=== PATIENT | male | born 1960 | race Caucasian/White ===

== ENCOUNTER 2018-07-22 06:20 | Day surgery (SDC) | payer MEDICARE ==
[2018-07-21 09:11] LABS: HEMATOCRIT 43.1 % (42.0-54.0); HEMOGLOBIN 14.5 g/dL (13.5-17.5); MCH 31.7 pg (26.0-34.0); MCHC 33.6 g/dL (31.0-37.0); MCV 94.1 fL (80.0-100.0); MEAN PLATELET VOLUME 10.1 fL (7.4-10.4); RBC 4.58 10x6/uL (4.20-6.10); RDW 13.6 % (11.5-14.5); WBC 6.8 10x3/uL (4.8-10.8)
[~2018-07-22] VITALS: Ht 175.3 cm; Wt 79.8 kg
[~2018-07-22 06:20] MED LIST: ACETAMINOPHEN; ACETAMINOPHEN325 MG; BAYER CHEWABLE81 MG PO; FEXOFENADINE H180 MG PO; PRAVACHOL20 MG PO; RANITIDINE HCL150 M1 PO; TOPAMAX200 MG PO; TRAZODONE HCL150 MG; ZOLOFT100 MG PO
[2018-07-22] MEDS ORDERED: TOPAMAX200 MG PO (07:04)
[2018-07-22 07:07] VITALS: BP 100/57; Ht 175.3 cm; Wt 79.8 kg
[2018-07-22] MEDS ORDERED: HYDROCODON-ACE1 EA10 PO (10:13)
--- NOTE | 2018-07-22 10:32 | NUR ---
FIRST PART CASE LATERAL TO TAKE BLOOD FROM LEFT POSTERIOR HIP. 2ND PART SUPINE, LEFT KNEE PREP TOES TO TOURNIQUET. HIP PREP WITH CHLORAPREP AND DRAPED WITH TOWELS BY DR STEWART, POSTERIOR HIP,
--- NOTE | 2018-07-22 11:32 | NUR ---
1029 PT HERE TO TRAIN PATIENT ON HOW TO PROPERLY USE CRUTCHES.
--- NOTE | 2018-07-22 12:08 | NUR ---
1040 PHYSICAL THERAPIST IS RECOMMENDING THAT PT USE A WALKER INSTEAD OF CRUTCHES. PT HAS RIGHT SIDED WEAKNESS FROM A PREVIOUS TIA. PT HAD SOME BALANCE ISSUES USING THE CRUTCHES AND ALMOST FELL PER PHYSICAL THERAPIST. 1045 [facility] NOTIFIED OF WALKER NEED AND ARRANGEMENTS ARE BEING MADE TO GET WALKER TO PT.
--- NOTE | 2018-07-22 12:11 | NUR ---
1150 IV DC'D. NO BLEEDING AT SITE. BANDAID APPLIED.
--- NOTE | 2018-07-22 13:38 | OP ---
PATIENT NAME: LORE BULLOCK MEDICAL RECORD: [id number] :58 LOCATION:[facility] ADMISSION DATE: SURGEON: ALESHA STEWART MD DATE OF OPERATION: 07/22/2018 PREOPERATIVE DIAGNOSIS: Medial femoral condylar fracture. POSTOPERATIVE DIAGNOSIS: Medial femoral condylar fracture. PROCEDURE: Arthroscopic assisted open reduction internal fixation of medial femoral condyle (BioPlasty). Bone marrow aspirate harvest with autograft stem cell transplant. SURGEON: Alesha Stewart MD ANESTHESIA: General. INTRAOPERATIVE COMPLICATIONS: None. SUMMARY OF PATHOLOGIC FINDINGS: The patient had no untoward events in the knee itself and after BioPlasty the second look arthroscopy, there was no evidence of any BioPlasty material in the femoral condyle. The BioPlasty was delivered fluoroscopically. OPERATIVE SUMMARY IN DETAIL: After obtaining the appropriate preoperative orthopedic surgery consent as well as anesthetic consultation, evaluation and clearance, the patient was brought to the operating room and placed on the operating table in supine position. After adequate general laryngeal mask airway was administered, the patient was placed in a right lateral decubitus position. All pressure points well padded. After the patient's posterior iliac crest was prepped and draped, the Arthrex BMAC system was put in place. The trocar cannula was then tapped gently into the posterior superior iliac crest and then 120 cc of bone marrow aspirate was taken using the 5 cc turn and withdrawal technique. Having completed this, the 4 tubes were handed off the field for the Terrance system to concentrate bone marrow aspirate cells. As that was happening, sterile dressings were applied. The patient was then returned to a supine position, tourniquet was placed on the proximal aspect of left lower extremity. Left lower extremity was then prepped and draped in a routine sterile fashion. The leg was elevated and exsanguinated and tourniquet was inflated to 350 mmHg. Arthroscopy was established. Diagnostic arthroscopy showed no meniscal tears, no chondral fissuring. MRI was then rereviewed to show the patient's large medial femoral condylar fracture. With fluoroscopic guidance, the trocar system for the bone marrow aspirate delivery system, Arthrex was then placed into the medial femoral condyle corresponding to the appropriate position as seen on MRI. The bone marrow aspirate having been mixed with demineralized bone matrix and made pullable was then placed into the medial femoral condyle under direct fluoroscopic guidance. Having completed this, the cannula was withdrawn after the trocar was placed back in it. Repeat arthroscopy was done at this time showed no evidence of any of the intramedial femoral condyle bone marrow fixation for ORIF to be inside the knee itself. With the biologic ORIF completed, arthroscopy portals were closed in routine interrupted fashion using 4-0 Prolene. Sterile dressings were applied. The patient was awakened and taken to recovery room in stable condition. All final needle and sponge counts were correct. OPERATIVE REPORT [id number] KOBELORE HERMOSILLO TRANSTRAVIS:[id number] Voice Confirmation ID: [id number] DOCUMENT ID: [id number] PAT LIZ, ALESHA ALMARAZ at 1338 CC: [id number] DICTATION DATE: 07/22/18 1017 GLOBAL ACCOUNT EXECUTIVE: 07/22/18 1118 [id number] [place] [address]
== END 2018-07-22 12:09 | disposition home or self-care (01) ==
LOC: D.OPS 06:20 → D.PAN 21:30
PROVIDERS: Anesthesiology; ATTEND Orthopaedic Surgery
DX: S72.432A Displaced fracture of medial condyle of left femur, initial encounter for closed fracture (principal)